=== PATIENT | male | born 1990 | race Caucasian/White ===

== ENCOUNTER 2019-08-06 18:21 | Emergency (ER) | payer OTHER ==
[~2019-08-06] VITALS: Ht 160 cm; Wt 56.2 kg
[2019-08-06 18:30] VITALS: Ht 160 cm; Wt 56.2 kg
[2019-08-06 18:51] VITALS: BP 117/73
== END 2019-08-06 18:51 | disposition home or self-care (01) ==
LOC: ED 18:21
DX: M54.42 Lumbago with sciatica, left side (principal)